=== PATIENT | female | born 1950 | race Caucasian/White ===

== ENCOUNTER 2019-01-04 15:45 | Inpatient (IN) | payer MEDICARE, MEDICAID ==
[~2019-01-04] VITALS: Ht 172.7 cm; Wt 70.3 kg
[2019-01-04] MEDS ORDERED: ZOLPIDEM TARTRATE 10 MG TABLET PO PRN (20:45)
[2019-01-04] MEDS ORDERED: ASPI-1182 PO (21:55)
[2019-01-04] MEDS ORDERED: OLAN5TAB2 PO (21:55)
[2019-01-04] MEDS ORDERED: CITA-106 PO (21:55)
[2019-01-04] MEDS ORDERED: LISI-661 PO (21:55)
[2019-01-04] MEDS ORDERED: ATOR40TA28 PO (21:55)
[2019-01-04] MEDS ORDERED: QUET100T PO (21:55)
[2019-01-04 22:03] VITALS: BP 144/72
[2019-01-04 22:10] VITALS: BP 146/61
[2019-01-04] MEDS ORDERED: CLOP75TA3 PO (22:15)
[2019-01-04] MEDS ORDERED: PNEUMOCOCCAL VACCINE POLYVALENT 0.5 ML VIAL [PPSV23] IM ONE (22:15)
[2019-01-04] MEDS: LORazepam 2 MG TABLET PO PRN (22:20)
[2019-01-04] MEDS: HALOPERIDOL 5 MG TABLET PO PRN (22:20)
[2019-01-04] MEDS ORDERED: ACETAMINOPHEN 325 MG TABLET PO PRN (22:45)
[2019-01-04] MEDS ORDERED: CloNIDine HCL 0.1 MG TABLET PO PRN (22:45)
[2019-01-04] MEDS ORDERED: LOPERAMIDE HCL 2 MG CAPSULE PO PRN (22:45)
[2019-01-04] MEDS ORDERED: ONDANSETRON HCL 4 MG TABLET PO PRN (22:45)
[2019-01-04] MEDS ORDERED: DOCUSATE SODIUM 100 MG CAPSULE PO PRN (22:45)
[2019-01-04] MEDS ORDERED: IBUPROFEN 400 MG TABLET PO PRN (22:45)
[2019-01-04] MEDS ORDERED: MAG HYDROX/AL HYDROX/SIMETH ES 30 ML SUSPENSION UDCUP PO PRN (22:45)
[2019-01-04] MEDS ORDERED: PETROLATUM,WHITE 28 GM JELLY TP PRN (22:45)
[2019-01-04] MEDS ORDERED: ALBUTEROL SULFATE HFA 90 MCG/PUFF 8 GM INHALER IH PRN (22:45)
[2019-01-04] MEDS ORDERED: MAGNESIUM HYDROXIDE SUSPENSION 30 ML UDCUP PO PRN (22:45)
[2019-01-04] MEDS ORDERED: GuaiFENesin/D-METHORPHAN [SUGAR-FREE] 200-20MG/10 ML SYRUP UDCUP PO PRN (22:45)
[2019-01-05 07:58] LABS: BASOPHILS % (AUTO) 0.6 % (0.0-2.0); EOSINOPHILS % (AUTO) 2.8 % (1.0-6.0); HEMATOCRIT 42.4 % (36-46); HEMOGLOBIN 14.3 g/dL (12.0-16.0); LYMPHOCYTES # (AUTO) 2.8 K/uL (1.0-4.8); LYMPHOCYTES % (AUTO) 33.9 % (22.0-44.0); MEAN CORPUSCULAR HEMOGLOBIN 31.1 pg (26.0-34.0); MEAN CORPUSCULAR HGB CONC 33.7 G/dL (31.0-37.0); MEAN CORPUSCULAR VOLUME 92 fL (80-100); MONOCYTES # (AUTO) 0.9 K/uL (0.1-1.0); MONOCYTES % (AUTO) 10.4 % (2.0-9.0); NEUTROPHILS # (AUTO) 4.4 K/uL (1.8-7.7); NEUTROPHILS % (AUTO) 52.3 % (40.0-70.0); PLATELET COUNT (AUTO) 285 K/uL (150-450); RED CELL DISTRIBUTION WIDTH 12.9 % (11.5-14.5)
[2019-01-05 08:15] LABS: ALANINE AMINOTRANSFERASE 11 U/L (12-78); ALBUMIN 2.9 g/dL (3.4-5.0); ALKALINE PHOSPHATASE 118 U/L (46-116); ANION GAP 9 mmol/L (8-16); ASPARTATE AMINOTRANSFERASE 14 U/L (15-37); BILIRUBIN,TOTAL 0.4 mg/dL (0.1-1.0); CALCIUM, TOTAL 8.5 mg/dL (8.8-10.5); CARBON DIOXIDE 29 mmol/L (22-29); CHLORIDE 107 mmol/L (98-107); CHOLESTEROL 203 mg/dL (131-200); CREATININE 0.68 mg/dL (0.60-1.30); GLOMERULAR FILTR. RATE CALC > 60 mL/min (>60); GLUCOSE,RANDOM 83 mg/dL (70-110); HDL CHOLESTEROL 41 mg/dL (40-60); LDL CHOL (CALC.) 143 mg/dL (0-130); POTASSIUM 3.9 mmol/L (3.5-5.1); SODIUM SERUM 145 mmol/L (136-145); TOTAL PROTEIN, SERUM 6.5 g/dL (6.4-8.2); TRIGLYCERIDES 95 mg/dL (15-150); UREA NITROGEN, BLOOD 19 mg/dL (7-18)
[2019-01-05 08:21] VITALS: BP 114/60
[2019-01-05 08:36] LABS: FREE T4 (FREE THYROXINE) 0.89 ng/dL (0.76-1.46); THYROID STIMULATING HORMONE 1.81 uIU/mL (0.36-3.74)
[2019-01-05] MEDS ORDERED: LISINOPRIL 10 MG TABLET PO SCH (09:00)
[2019-01-05] MEDS ORDERED: ASPIRIN 81 MG EC TABLET PO SCH (09:00)
[2019-01-05] MEDS ORDERED: ATORVASTATIN CALCIUM 40 MG TABLET PO SCH (09:00)
[2019-01-05] MEDS ORDERED: ARIPiprazole 5 MG TABLET PO ONE (12:45)
[2019-01-05 16:28] VITALS: BP 116/63
[2019-01-06 00:10] VITALS: BP 116/68
[2019-01-06] MEDS: LORazepam 2 MG TABLET PO PRN (00:18)
[2019-01-06] MEDS: HALOPERIDOL 5 MG TABLET PO PRN (00:18)
[2019-01-06] MEDS: LISINOPRIL 10 MG TABLET PO SCH (09:00)
[2019-01-06] MEDS ORDERED: ARIPiprazole 5 MG TABLET PO SCH (09:00)
[2019-01-06] MEDS: CLOPIDOGREL BISULFATE 75 MG TABLET PO SCH (09:03)
[2019-01-06] MEDS: ASPIRIN 81 MG EC TABLET PO SCH (09:03)
[2019-01-06] MEDS: ATORVASTATIN CALCIUM 40 MG TABLET PO SCH (09:03)
[2019-01-06 09:07] VITALS: BP 105/57
[2019-01-06] MEDS: NICOTINE 14 MG/24 HOUR PATCH TD PRN (09:57)
[2019-01-06 16:52] VITALS: BP 141/68
[2019-01-06] MEDS: ARIPiprazole 5 MG TABLET PO SCH (16:56)
[2019-01-07 00:17] VITALS: BP 149/72
[2019-01-07 08:13] VITALS: BP 114/67
[2019-01-07] MEDS: ATORVASTATIN CALCIUM 40 MG TABLET PO SCH (08:41)
[2019-01-07] MEDS: ARIPiprazole 5 MG TABLET PO SCH ×2 (08:41→19:40)
[2019-01-07] MEDS: LISINOPRIL 10 MG TABLET PO SCH (08:41)
[2019-01-07] MEDS: ASPIRIN 81 MG EC TABLET PO SCH (08:41)
[2019-01-07] MEDS: CLOPIDOGREL BISULFATE 75 MG TABLET PO SCH (08:41)
[2019-01-07] MEDS: NICOTINE 14 MG/24 HOUR PATCH TD PRN (08:49)
[2019-01-07] MEDS ORDERED: ARIP5TAB8 PO (13:23)
[2019-01-07 16:24] VITALS: BP 140/70
[2019-01-08 00:08] VITALS: BP 133/67
[2019-01-08 08:14] VITALS: BP 120/59
[2019-01-08 08:25] VITALS: BP 122/64
[2019-01-08] MEDS: ATORVASTATIN CALCIUM 40 MG TABLET PO SCH (08:25)
[2019-01-08] MEDS: CLOPIDOGREL BISULFATE 75 MG TABLET PO SCH (08:25)
[2019-01-08] MEDS: ASPIRIN 81 MG EC TABLET PO SCH (08:25)
[2019-01-08] MEDS: LISINOPRIL 10 MG TABLET PO SCH (08:25)
[2019-01-08] MEDS: ARIPiprazole 5 MG TABLET PO SCH ×2 (08:25→19:31)
[2019-01-08] MEDS: LORazepam 2 MG TABLET PO PRN (11:57)
[2019-01-08 16:08] VITALS: BP 135/75
[2019-01-09 05:30] VITALS: BP 103/66
[2019-01-09] MEDS: ARIPiprazole 5 MG TABLET PO SCH ×2 (08:17→18:45)
[2019-01-09] MEDS: CLOPIDOGREL BISULFATE 75 MG TABLET PO SCH (08:17)
[2019-01-09] MEDS: ATORVASTATIN CALCIUM 40 MG TABLET PO SCH (08:17)
[2019-01-09] MEDS: ASPIRIN 81 MG EC TABLET PO SCH (08:17)
[2019-01-09] MEDS: NICOTINE 14 MG/24 HOUR PATCH TD PRN (08:22)
[2019-01-09] MEDS: LISINOPRIL 10 MG TABLET PO SCH (08:23)
[2019-01-09 08:25] VITALS: BP 101/65
[2019-01-09 16:00] VITALS: BP 116/69
[2019-01-10 00:03] VITALS: BP 144/86
[2019-01-10 08:10] VITALS: BP 116/57
[2019-01-10 08:40] VITALS: BP 118/64
[2019-01-10] MEDS: ARIPiprazole 5 MG TABLET PO SCH (08:42)
[2019-01-10] MEDS: CLOPIDOGREL BISULFATE 75 MG TABLET PO SCH (08:42)
[2019-01-10] MEDS: ASPIRIN 81 MG EC TABLET PO SCH (08:42)
[2019-01-10] MEDS: NICOTINE 14 MG/24 HOUR PATCH TD PRN (08:42)
[2019-01-10] MEDS: LISINOPRIL 10 MG TABLET PO SCH (08:42)
[2019-01-10] MEDS: ATORVASTATIN CALCIUM 40 MG TABLET PO SCH (08:42)
[2019-01-10] MEDS ORDERED: ARIP5TAB8 PO (10:12)
== END 2019-01-10 14:18 | disposition home or self-care (01) | DRG 885 ==
LOC: B2X 20:46
PROC: 3E0234Z Introduction of Serum, Toxoid and Vaccine into Muscle, Percutaneous Approach (ICD-10-PCS; principal; 2019-01-04)
DX: F25.0 Schizoaffective disorder, bipolar type (principal); E78.5 Hyperlipidemia, unspecified; F17.200 Nicotine dependence, unspecified, uncomplicated; G89.29 Other chronic pain; I10 Essential (primary) hypertension; I73.9 Peripheral vascular disease, unspecified; Z62.810 Personal history of physical and sexual abuse in childhood; M54.9 Dorsalgia, unspecified; Z65.3 Problems related to other legal circumstances; Z79.02 Long term (current) use of antithrombotics/antiplatelets; Z79.82 Long term (current) use of aspirin; Z59.0 Homelessness; Z86.73 Personal history of transient ischemic attack (TIA), and cerebral infarction without residual deficits; Z91.410 Personal history of adult physical and sexual abuse; Z71.6 Tobacco abuse counseling; Z23 Encounter for immunization
CPT/HCPCS: 83036; 84439; 84443; 87081